=== PATIENT | male | born 1950 | race Caucasian/White ===

== ENCOUNTER 2020-12-09 08:04 | Day surgery (SDC) | payer OTHER ==
[~2020-12-09] VITALS: Ht 185.4 cm; Wt 130.0 kg
[~2020-12-09 08:04] MED LIST: AMLO5 PO; BENAML20/5; DIPH50 PO; DOC250 PO; Diclofenac Pota50 MG PO; GLYB3 PO; INDO25 PO; LOSARTAN-HCTZ1 EACH PO; NAPR500; OXYACE5T PO; PRED20 PO; RXOXYACE PO
[2020-12-09] MEDS ORDERED: Glyburide5 MG PO (08:55)
--- NOTE | 2020-12-09 09:37 | NUR ---
12/09/20 0937 [place] History, Chart, Medications and Allergies reviewed before start of procedure. Patient confirms NPO status and agrees with scheduled surgery. PATIENT DETERMINED TO BE ASA APPROPRIATE FOR PROPOFOL SEDATION PRIOR TO START OF PROCEDURE BY . 3-LEAD EKG REVIEWED WITH PHYSICIAN PRIOR TO START OF PROCEDURE. MONITOR INTACT WITH CONTINUOUS PULSE OXIMETRY AND INTERMITTENT BP. SUPPLEMENTAL O2 TO BE TITRATED THROUGHOUT PROCEDURE TO MAINTAIN O2 SATURATION ABOVE 90%.
== END 2020-12-09 10:55 | disposition home or self-care (01) ==
LOC: ORSCMMR 08:04 → ORD 09:00 → ORSCMMR 09:00
PROVIDERS: Internal Medicine Gastroenterology
PROC: 0DBL8ZX Excision of Transverse Colon, Via Natural or Artificial Opening Endoscopic, Diagnostic (ICD-10-PCS; principal; 2020-12-09 09:00)
DX: R19.5 Other fecal abnormalities (principal); D12.3 Benign neoplasm of transverse colon; Z86.010 Personal history of colon polyps; K57.30 Diverticulosis of large intestine without perforation or abscess without bleeding; K64.8 Other hemorrhoids; E11.9 Type 2 diabetes mellitus without complications; I10 Essential (primary) hypertension; Z79.899 Other long term (current) drug therapy; E66.01 Morbid (severe) obesity due to excess calories; Z68.38 Body mass index [BMI] 38.0-38.9, adult; Z79.84 Long term (current) use of oral hypoglycemic drugs
CPT/HCPCS: 82947; 88305; J2704; J7120

== ENCOUNTER → 2021-02-17 | Outpatient (CLI) | payer OTHER ==
[~2021-02-17] MED LIST changes: +Glyburide5 MG PO
[2021-02-17 16:19] LABS: Alanine Aminotransfer (ALT/SGP 26 U/L (12-78); Albumin, Blood 3.4 g/dL (3.4-5.0); Albumin/Globulin Ratio 0.8 (0.8-1.8); Alk Phos 71 U/L (50-136); Anion Gap 5 mmol/L (6-16); Aspartate Aminotrans (AST/SGOT 16 U/L (12-37); Bilirubin, Total 0.5 mg/dL (0.1-1.0); Blood Urea Nitrogen 23 mg/dL (8-24); Bun/Creatinine Ratio 20.7 (12.0-20.0); CO2, Blood 28 mmol/L (21-32); Calcium, Blood 9.1 mg/dL (8.5-10.1); Chloride, Blood 106 mmol/L (98-108); Creatinine, Blood 1.11 mg/dL (0.60-1.20); Globulin, Blood 4.2 g/dL (2.2-4.0); Glomerular Filtration Rate >60 (60-); Glucose, Blood 229 mg/dL (70-99); Potassium, Blood 3.9 mmol/L (3.5-5.5); Sodium, Blood 139 mmol/L (136-145); Total Protein, Blood 7.6 g/dL (6.4-8.2)
== END | disposition home or self-care (01) ==
LOC: LAB 13:25 → LAB SHORT 13:25
PROVIDERS: Family Medicine
DX: E11.9 Type 2 diabetes mellitus without complications (principal)
CPT/HCPCS: 80053; 83036

== ENCOUNTER 2023-09-29 12:02 | Emergency (ER) | payer OTHER ==
[~2023-09-29] VITALS: Ht 185.4 cm; Wt 108.9 kg
[~2023-09-29 12:02] MED LIST changes: +ATORVASTATIN CA80 M1 PO; +Aspirin325 MG PO; +FENO145 PO
[2023-09-29 13:25] LABS: BASOPHILS ABSOLUTE AUTO 0.09 K/mm3 (0.00-0.23); BASOPHILS PERCENT AUTO 1 % (0-2); EOSINOPHILS ABSOLUTE AUTO 0.44 K/mm3 (0.00-0.68); EOSINOPHILS PERCENT AUTO 5 % (0-6); Hemoglobin 14.2 g/dL (13.5-17.5); IMMATURE GRAN ABSOLUTE AUTO 0.03 K/mm3 (0.00-0.10); IMMATURE GRAN PERCENT AUTO 0 % (0-1); LYMPHOCYTES ABSOLUTE AUTO 2.64 K/mm3 (0.84-5.20); LYMPHOCYTES PERCENT AUTO 33 % (21-46); MONOCYTES ABSOLUTE AUTO 0.79 K/mm3 (0.16-1.47); MONOCYTES PERCENT AUTO 10 % (4-13); Mean Corpuscular HGB 29.2 pg (26.0-34.0); Mean Corpuscular HGB Conc 33.8 g/dL (31.5-36.5); Mean Corpuscular Volume 86 fL (80-100); Mean Platelet Volume 10.1 fL (9.1-12.4); NEUTROPHILS ABSOLUTE AUTO 4.11 K/mm3 (1.96-9.15); NEUTROPHILS PERCENT AUTO 51 % (41-73); Platelet Count 263 K/mm3 (150-400); RDW Coefficient Variation 12.9 % (11.7-14.2); RDW Standard Deviation 40.8 fL (35.1-46.3); Red Blood Cell Count 4.87 M/mm3 (4.30-5.90)
[2023-09-29 13:36] LABS: Calcium, Blood 9.3 mg/dL (8.5-10.1); Creatinine, Blood 1.53 mg/dL (0.60-1.20); Potassium, Blood 3.6 mmol/L (3.5-5.5)
[2023-09-29 15:00] VITALS: BP 123/77
== END 2023-09-29 15:09 | disposition home or self-care (01) ==
LOC: ER 12:02
PROVIDERS: Emergency Medicine
DX: R55 Syncope and collapse (principal); R00.1 Bradycardia, unspecified; I10 Essential (primary) hypertension; E11.9 Type 2 diabetes mellitus without complications; M10.9 Gout, unspecified; E78.5 Hyperlipidemia, unspecified; Z79.82 Long term (current) use of aspirin; Z79.84 Long term (current) use of oral hypoglycemic drugs; Z79.899 Other long term (current) drug therapy
CPT/HCPCS: 80048; 84484; 85025; 93005; 93010; 99284-25